=== PATIENT | female | born 1940 ===

== ENCOUNTER 2020-10-25 08:44 | Emergency (ER) | payer OTHER ==
[~2020-10-25] VITALS: Ht 152.4 cm; Wt 60.3 kg
[~2020-10-25 08:44] MED LIST: AMARYL PO; AVAPRO150 MG; GLIMEPIRIDE1 MG; NABUMETONE750 MG; TUSSI-PRES LIQ118 ML PO; ZITHROMAX500 MG PO
[2020-10-25] MEDS ORDERED: ATORVASTATIN CA10 MG PO (08:57)
[2020-10-25] MEDS ORDERED: INTESTINEX680 M1 PO (15:50)
[2020-10-25] MEDS ORDERED: CIPRO500 MG PO (15:50)
[2020-10-25] MEDS ORDERED: PEPCID AC20 MG PO (15:50)
[2020-10-25] MEDS ORDERED: FLAGYL500MG PO (15:50)
== END 2020-10-25 16:25 | disposition home or self-care (01) ==
LOC: ER 08:44
DX: K57.30 Diverticulosis of large intestine without perforation or abscess without bleeding (principal); R10.32 Left lower quadrant pain; Z03.818 Encounter for observation for suspected exposure to other biological agents ruled out

== ENCOUNTER 2021-07-23 15:30 | Emergency (ER) | payer OTHER ==
[~2021-07-23] VITALS: Ht 157.5 cm; Wt 63.0 kg
[~2021-07-23 15:30] MED LIST changes: +ATORVASTATIN CA10 MG PO; +CIPRO500 MG PO; +FLAGYL500MG PO; +INTESTINEX680 M1 PO; +PEPCID AC20 MG PO
[2021-07-23] MEDS ORDERED: FLONASE16 GM NASAL (18:01)
[2021-07-23] MEDS ORDERED: AMOX1TAB5 PO (18:01)
== END 2021-07-23 18:05 | disposition home or self-care (01) ==
LOC: ER 15:30
DX: J32.9 Chronic sinusitis, unspecified (principal); Z03.818 Encounter for observation for suspected exposure to other biological agents ruled out; R50.9 Fever, unspecified; J02.9 Acute pharyngitis, unspecified; R11.11 Vomiting without nausea